=== PATIENT | female | born 1990 | race Caucasian/White ===

== ENCOUNTER → 2016-08-21 | Outpatient (CLI) | payer OTHER ==
[~2016-08-21] MED LIST: CALC500C3; PRENTAB26 PO; RANITAB33 PO
[2016-08-21 12:11] LABS: PROLACTIN 7.15 ng/mL
[2016-08-21 12:14] LABS: INSULIN FASTING 4.5 mU/L (3-25); INSULIN LOG 0.6532
[2016-08-21 12:35] LABS: THYROID STIMULATING HORMONE 1.42 uIu/ml (0.300-4.500)
[2016-08-21 13:48] LABS: CALCULATED INSULIN SENSITIVITY 0.393; GLUCOSE LOG 1.8921
== END | disposition home or self-care (01) ==
LOC: C.LAB1850 10:00
PROVIDERS: ATTEND Physician Assistant
DX: N92.6 Irregular menstruation, unspecified (principal); L70.9 Acne, unspecified

== ENCOUNTER → 2016-12-06 | Outpatient (CLI) | payer OTHER ==
[2016-12-06 15:04] LABS: BASO % 0.2 %; BASO ABS # 0.01 K/uL (0-0.2); COMPLETE YES; EOS % 0.4 %; HEMATOCRIT 35.8 % (37-47); IG% 0.2 %; LYMPH % 28.4 %; LYMPH ABS # 1.39 K/uL (1.2-3.4); MEAN CELL VOLUME 88.8 fL (80-100); MEAN CORPUSCULAR HEMOGLOBIN 31.5 pg (25-34); MEAN CORPUSCULAR HGB CONC 35.5 g/dl (32-36); MEAN PLATELET VOLUME 10.5 fL (7.4-10.4); NEUT % 61.8 %; PLATELET COUNT 218 K/uL (130-400); RED BLOOD COUNT 4.03 M/uL (4.2-5.4); WHITE BLOOD COUNT 4.89 K/uL (4.8-10.8)
[2016-12-06 18:48] LABS: URINE APPEARANCE TURBID (CLEAR); URINE BILIRUBIN NEG (NEG); URINE COLOR DK YELLOW; URINE EPITHELIAL CELL AUTO >30 /lpf (0-5); URINE NITRITE NEG (NEG); UROBILINOGEN NEG (NEG)
[2016-12-06 18:50] LABS: MANUAL MICROSCOPIC REQUIRED? NO; REVIEW REQ? NO
[2016-12-10 14:29] LABS: CHLAMYDIA TRACH RNA*** NOT DETECTED (NOT DETECTED); GC (NEIS GONORRHOEAE)RNA** NOT DETECTED (NOT DETECTED)
== END | disposition home or self-care (01) ==
LOC: C.LAB1850 12:46
PROVIDERS: ATTEND Obstetrics & Gynecology
DX: Z34.90 Encounter for supervision of normal pregnancy, unspecified, unspecified trimester (principal)

== ENCOUNTER → 2017-01-02 | Outpatient (CLI) | payer OTHER ==
[2017-01-02 15:02] LABS: URINE APPEARANCE TURBID (CLEAR); URINE BILIRUBIN NEG (NEG); URINE COLOR DK YELLOW; URINE EPITHELIAL CELL AUTO >30 /lpf (0-5); URINE NITRITE NEG (NEG); URINE SPECIFIC GRAVITY 1.038 (1.000-1.030); UROBILINOGEN NEG (NEG)
[2017-01-02 15:04] LABS: MANUAL MICROSCOPIC REQUIRED? NO; REVIEW REQ? YES
== END | disposition home or self-care (01) ==
LOC: C.LABSPEC 13:46
PROVIDERS: ATTEND Obstetrics & Gynecology
DX: N39.0 Urinary tract infection, site not specified (principal)

== ENCOUNTER → 2017-01-29 | Outpatient (CLI) | payer OTHER ==
[2017-01-29 13:48] LABS: GTGD 50 Grams
== END | disposition home or self-care (01) ==
LOC: C.LAB1850 09:48
PROVIDERS: ATTEND Obstetrics & Gynecology
DX: Z34.81 Encounter for supervision of other normal pregnancy, first trimester (principal); Z3A.00 Weeks of gestation of pregnancy not specified

== ENCOUNTER → 2017-04-23 | Outpatient (CLI) | payer OTHER ==
[2017-04-23 12:13] LABS: HEMATOCRIT 31.5 % (37-47); HEMOGLOBIN 10.7 g/dL (12.0-16.0)
== END | disposition home or self-care (01) ==
LOC: C.LAB1850 10:44
PROVIDERS: ATTEND Obstetrics & Gynecology
DX: Z34.83 Encounter for supervision of other normal pregnancy, third trimester (principal)

== ENCOUNTER → 2017-06-24 | Outpatient (CLI) | payer OTHER | END | disposition home or self-care (01) | LOC: C.LABSPEC 14:07 | PROVIDERS: ATTEND Obstetrics & Gynecology | DX: Z34.83 Encounter for supervision of other normal pregnancy, third trimester (principal) ==

== ENCOUNTER 2017-07-06 03:42 | Inpatient (IN) | payer OTHER ==
[~2017-07-06] VITALS: Ht 167.6 cm; Wt 80.0 kg
[2017-07-06] MEDS ORDERED: LACTATED RINGER'S 1000ML 1,000 ML IV SCH ×2 (04:13→06:11)
[2017-07-06] MEDS ORDERED: LACTATED RINGER'S 1000ML 1,000 ML IV PRN (04:13)
[2017-07-06] MEDS ORDERED: EpHEDrine SULFATE INJ 50 MG/ML AMP ONE (04:25)
[2017-07-06] MEDS ORDERED: BUPIVACAINE 0.25% 30 ML VIAL ONE (04:25)
[2017-07-06] MEDS ORDERED: FENTANYL 2MCG/ML ROPIV 1.25MG/ML 100ML BAG EPI ONE (04:26)
[2017-07-06] MEDS ORDERED: FENTANYL CITRATE INJ 50 MCG/1 ML 2 ML VIAL ONE (04:26)
[2017-07-06 04:42] LABS: HEMATOCRIT 34.2 % (37-47); HEMOGLOBIN 11.3 g/dL (12.0-16.0); MEAN CELL VOLUME 84.9 fL (80-100); MEAN PLATELET VOLUME 10.4 fL (7.4-10.4); PLATELET COUNT 155 K/uL (130-400); RED CELL DISTRIBUTION WIDTH SD 43.6 fL (36.4-46.3); WHITE BLOOD COUNT 6.02 K/uL (4.8-10.8)
[2017-07-06] MEDS ORDERED: OXYTOCIN 30 UNITS/500ML NSS IV ONE (05:45)
[2017-07-06] MEDS ORDERED: OXYTOCIN 30 UNITS/500ML NSS IV PRN (06:15)
[2017-07-06] MEDS ORDERED: ACETAMINOPHEN 325 MG TAB PO PRN (06:15)
[2017-07-06] MEDS ORDERED: SUPERCREAM 0.870 % 15GM JAR EXT PRN (06:15)
[2017-07-06] MEDS ORDERED: OXYCODONE/ACETAMINOPHEN 5-325 TAB PO PRN (06:15)
[2017-07-06] MEDS ORDERED: HYDROCORTISONE ACETATE 25 MG SUPP PR PRN (06:15)
[2017-07-06] MEDS ORDERED: BENZOCAINE 20% AER SPR 82.5 GM CAN EXT PRN (06:15)
[2017-07-06] MEDS ORDERED: DIPHTHERIA/TETANUS/PERTUSSIS 0.5 ML SYR/VIAL IM. ONE (06:15)
[2017-07-06] MEDS ORDERED: LANOLIN OINT EXT PRN (06:15)
--- NOTE | 2017-07-06 06:15 | Vaginal Delivery Summary ---
Vaginal Delivery Summary Shama Mendoza is a who presented in active labor. She was provided with an epidural, and then shortly thereafter she became completely dilated with an urge to push. She was coached through her pushing and very quickly delivered the head of her infant in an occiput anterior. Shoulders followed immediately thereafter with no difficulty, followed by the rest of the baby which was placed on the maternal abdomen and cord was doubly clamped and cut, and then the placenta delivered spontaneously and was vessel cord and circummarginate insertion of the membranes cervix vagina and perineum were without laceration. The fundus was firm and lochia was minimal.
[2017-07-06 06:21] VITALS: Ht 167.6 cm; Wt 80.0 kg
[2017-07-06] MEDS: PRENATAL VITAMIN TAB PO SCH (08:00)
[2017-07-06] MEDS: DOCUSATE SODIUM 100 MG CAP PO SCH ×2 (08:00→20:06)
--- NOTE | 2017-07-06 08:33 | Anesthesia Procedure Note ---
Anesthesia Epidural Removal Nt Date & Time Jul 06, 2017 at 08:33 Vital Signs Pain Intensity: 8.0 Notes Mental Status: alert / awake / arousable, participated in evaluation Nausea / Vomiting: adequately controlled Pain: adequately controlled Airway Patency, RR, SpO2: stable & adequate BP & HR: stable & adequate Hydration State: stable & adequate Neuraxial Anesthesia: was administered Anesthetic Complications: no major complications apparent, pt satisfied with anesthetic care Epidural: removed without complications, with tip intact
[2017-07-06 11:30] VITALS: BP 107/69; PULSE 90; TEMP 36.3
[2017-07-06 15:30] VITALS: BP 113/65; PULSE 93; TEMP 36.7
[2017-07-06] MEDS: IBUPROFEN 600 MG TAB PO PRN ×2 (15:46→21:47)
[2017-07-06 19:30] VITALS: BP 119/74; PULSE 103; TEMP 36.4
[2017-07-06 23:20] VITALS: BP 109/70; PULSE 96; TEMP 36.6
[2017-07-07 03:40] VITALS: BP 103/67; PULSE 80; TEMP 36.7
[2017-07-07] MEDS: IBUPROFEN 600 MG TAB PO PRN ×3 (03:51→13:41)
[2017-07-07 06:33] LABS: HEMATOCRIT 31.4 % (37-47); HEMOGLOBIN 10.4 g/dL (12.0-16.0)
--- NOTE | 2017-07-07 07:17 | Progress Note ---
Subjective Jul 07, 2017. Subjective conversation w/ patient, physical exam Ambulation: ambulating normally Voiding: no voiding problems Passing Gas: Yes Diet Tolerance: Regular Diet Lochia: Small Feeding Type: Breast Feeding Pain: minimal, well controlled Comment: seen and assessed at bedside; no acute events overnight Review of Systems Constitutional: No fever, No chills Respiratory: No cough, No shortness of breath Cardiac: No chest pain, No edema Abdomen: No nausea, No vomiting no headaches or calf pain Objective Vital Signs Date Time Temp Pulse Resp B/P (MAP) Pulse Ox O2 Delivery O2 Flow Rate FiO2 07/07/17 03:40 36.7 80 18 103/67 (79) Room Air 07/06/17 23:20 36.6 96 18 109/70 (83) Room Air 07/06/17 23:20 Room Air 07/06/17 19:30 36.4 103 18 119/74 (89) Room Air 07/06/17 15:30 36.7 93 20 113/65 (81) 07/06/17 11:30 36.3 90 20 107/69 (82) Physical Exam General Appearance: WELL-APPEARING, NO APPARENT DISTRESS Respiratory/Chest: chest non-tender, lungs clear, normal breath sounds Cardiovascular: regular rate, rhythm, no edema, no murmur Abdomen: normal bowel sounds, non tender, soft Fundus: Firm, Non-Tender, Relation to Umbilicus (1 below) Extremities: normal range of motion, non-tender, normal inspection, no pedal edema, no calf tenderness Laboratory Results Last 24 Hours Test 07/07/17 06:10 Hemoglobin 10.4 g/dL Hematocrit 31.4 % Medications Current Inpatient Medications Medications (Trade) Dose Ordered Sig/Naeem Route Start Time Stop Time Status Last Admin Dose Admin Lactated Ringer's 1,000 ml @ 125 mls/hr Q8H IV 07/06/17 06:11 08/05/17 06:10 Oxytocin (Pitocin IV) 30 units UD PRN IV 07/06/17 06:15 08/05/17 06:14 Benzocaine (Dermoplast Aero Spr) 1 appln PRN PRN EXT 07/06/17 06:15 08/05/17 06:14 Cocaine HCl (Supercream 0.870% Cr) BID PRN EXT 07/06/17 06:15 07/20/17 06:14 Hydrocortisone Acetate (Anusol Hc Supp) 25 mg BID PRN NH 07/06/17 06:15 08/05/17 06:14 Lanolin (Lanolin Oint) PRN PRN EXT 07/06/17 06:15 08/05/17 06:14 Prenat Multivit/ [place] Ripple/Iron/Folic Ac ( Vitamin Tab) 1 tab DAILY PO 07/06/17 08:00 08/05/17 07:59 Ibuprofen (Motrin Tab) 600 mg Q4H PRN PO 07/06/17 06:15 08/05/17 06:14 07/07/17 03:51 600 MG Acetaminophen (Tylenol Tab) 650 mg Q6H PRN PO 07/06/17 06:15 08/05/17 06:14 Oxycodone/ Acetaminophen (Percocet 5-325mg Tab) 1 tab Q4H PRN PO 07/06/17 06:15 07/20/17 06:14 Docusate Sodium (coLACE CAP) 100 mg BID PO 07/06/17 08:00 08/05/17 07:59 07/06/17 20:06 100 MG Assessment and Plan Post- Day#: 1 Continue Routine Care: 26 yo , PPD 1 s/p Doing well Continue routine care: encourage ambulation, breast feeding Pain control with rx prn Discharge instructions reviewed Resident Physician Supervision Note: I interviewed and examined the patient. Discussed with Dr. Mckeon and agree with findings and plan as documented in the note. Any exceptions or clarifications are listed here: [None] Documented By: Kayla Crews Resident Tracking Resident Involvement: Resident Care Provided Care Provided: OB Delivery
--- NOTE | 2017-07-07 07:19 | Discharge Instructions ---
Discharge Instructions Date of Service Jul 07, 2017. Admission Reason for Admission: LABOR Discharge Discharge Diagnosis / Problem: s/p Discharge Goals Goal(s): Routine recovery after delivery Medications Continue Dispensed Medications: supercream, dermaplast, tucks, lansinoh Activity Recommendations Activity Limitations: per Instructions/Follow-up section . Instructions / Follow-Up Instructions / Follow-Up ACTIVITY RECOMMENDATIONS: * Gradual return to full activity over the next 2-3 weeks. * No lifting - nothing heavier than baby over the next 2-3 weeks. * Do not engage in vigorous exercise, sexual activity or sports until cleared by your physician. * Do not drive or operate any motorized equipment until cleared by your physician. * You may shower/bathe daily. MEDICATIONS: For discomfort or pain, you may use Acetaminophen (Tylenol), Ibuprofen (Advil), or Naproxen (Aleve) following the package directions. For constipation you may use Colace following the package directions. BREAST CARE: If you are not breast feeding: * Wear a supportive bra 24 hours a day for one to two weeks. * Avoid stimulating your breasts and nipples as much as possible during the first few weeks after delivery. * When taking a shower, have the warm water hit your back, not breasts. * When your breasts feel full, apply ice packs. Usually three to four times a day helps ease the discomfort. * Take a mild pain medication (Tylenol / Motrin) when you are uncomfortable. If breast feeding: * Use breast milk to lubricate nipples. Lansinoh cream may be used for sore nipples. You do not need to remove cream prior to breast feeding. If using a different brand of cream, check the label for directions regarding removal of cream prior to nursing. * Wear a supportive bra. * If having problems with breasts or breast feeding, call a pharmacy consultant or your health care provider. EPISIOTOMY CARE: After delivery, if you have an episiotomy (stitches), the following steps will ease discomfort and aid healing. * For the first 24 hours after delivery, place ice packs next to your episiotomy to help reduce swelling. * After the first 24 hour-period, sitz baths, either portable or in the tub, are suggested. A shower with a shower arm sprayed over the episiotomy may be comforting. * Rama care should be done after each voiding and bowel movement. Squirt warm water from a plastic bottle over the perineum (region of the body between the anus and urinary opening) and pat dry. * Use Dermoplast to ease discomfort. Shake container. [place] directly over the episiotomy. Place a Tucks on a clean sanitary pad next to your episiotomy. SPECIAL CARE INSTRUCTIONS: When you are discharged from the hospital, it is important for you to follow the instructions listed below: * During the first week at home, you should be able to care for yourself and your baby. In addition, the usual light household activities are encouraged. * Limit your activities to the way you feel. Do not try to clean the house or move furniture. Be sensible. * If you actively engage in sports and have done so up until the time of your delivery, you may resume these activities as soon as you feel able. This may take up to one month or even longer. Use good judgment. * Continue to take your vitamins for at least six weeks after the of your baby. * Your diet need not be limited unless you were on a special diet before your delivery. Breast-feeding mothers need around 2500 calories per day and at least 64-80 ounces of fluid per day (8 to 10 glasses). * You should eat foods from the four major food groups. Crash diets or fad diets are to be avoided. Eating lean meats, fresh fruits and vegetables, low-fat dairy products, high fiber foods and a regular exercise program, will help you get back to your pre- weight without putting your health at risk. * Constipation is sometimes a problem after delivery. Take a mild laxative as needed. If breast feeding, Milk of Magnesia is acceptable to use. You may use a suppository or Fleets enema if no episiotomy. * A daily shower or tub bath is suggested. Be sure to thoroughly and gently dry the perineum. * A bloody vaginal discharge will usually continue until around four weeks post . A small amount of bleeding may continue for as long as six weeks. Vaginal discharge changes from the bright red bleeding after delivery to pink then brownish and finally yellowish-pink before becoming white and disappearing. * Bleeding may increase with activity. Your first period may come in 4-8 weeks. If you are breast feeding, your period may be delayed even longer. * [place] (sex) can begin whenever both you and your partner feel comfortable and do not have any form of genital infection. It is recommended that you wait at least six weeks for internal and external healing to occur. If you have questions, please talk to your health care practitioner. A condom should be used to prevent infection and . * Foreplay, gentle intercourse and lubrication is very important the first several times to prevent pain. A water-based lubricant such as K-Y jelly or Astroglide may be used. * If you have RH negative blood and your baby is RH positive, you will receive RHOGAM by injection prior to discharge. The nurse will give you a card to keep with you that has the date and place that you received RHOGAM after delivery. * During your care, you had a Rubella screen done to check for the presence of rubella antibodies in your blood. If your test was negative, you will receive a Rubella vaccine prior to discharge. This vaccine may cause a fever, soreness at the injection site and flu-like symptoms. If these symptoms persist, notify your health care practitioner. is not advised for one month after a Rubella vaccine. * Verbalizes understanding of car seat law as reviewed with patient nursing. * Car Seat hand-out given and reviewed with patient by nursing. * Shaken baby information reviewed with patient by nursing. Call you doctor if: * Heavy bleeding (saturating several pads an hour) or passing clots the size of your fist. * A fever >101 degrees F (38.3 degrees C) on two occasions four hours apart and /or chills. * Unusual pain in the pelvic or vaginal areas. * "Baby Blues" lasting longer than two weeks. If you have any questions or concerns, call your health care practitioner at . FOLLOW UP VISIT: * Please call the office at to schedule a 6 week examination. It is important you keep this appointment. It is important for you to make arrangements for either yearly or twice yearly check-ups thereafter. Current Hospital Diet Patient's current hospital diet: Regular OB Diet Discharge Diet Recommended Diet: Regular OB Diet Pending Studies Studies pending at discharge: no Medical Emergencies . Who to Call and When: Medical Emergencies: If at any time you feel your situation is an emergency, please call [phone] immediately. . Non-Emergent Contact Non-Emergency issues call your: [employer] Teacher Assistant . . "Provider Documentation" section prepared by Jeanne Mckeon. .
[2017-07-07 07:30] VITALS: BP 113/65; PULSE 92; TEMP 36.7; O2SAT 99
[2017-07-07] MEDS: PRENATAL VITAMIN TAB PO SCH (08:13)
[2017-07-07] MEDS: DOCUSATE SODIUM 100 MG CAP PO SCH (08:14)
[2017-07-07 15:10] VITALS: BP_DIAS 65; PULSE 92; TEMP 36.7
== END 2017-07-07 15:10 | disposition home or self-care (01) | DRG 775 ==
LOC: C.OPB 03:42 → C.LD 03:42 → C.OPB 04:15 → C.LD 04:15 → C.OBG 11:17
PROVIDERS: ADMIT Obstetrics & Gynecology; ATTEND Obstetrics & Gynecology
PROC: 10E0XZZ Delivery of Products of Conception, External Approach (ICD-10-PCS; principal; 2017-07-06)
DX: O80 Encounter for full-term uncomplicated delivery (principal); Z37.0 Single live birth; Z3A.38 38 weeks gestation of pregnancy

== ENCOUNTER → 2017-08-07 | Outpatient (CLI) | payer OTHER | END | disposition home or self-care (01) | LOC: C.PAPS 18:13 | PROVIDERS: ATTEND Obstetrics & Gynecology | DX: Z12.4 Encounter for screening for malignant neoplasm of cervix (principal) ==